=== PATIENT | female | born 1950 | race Caucasian/White ===

== ENCOUNTER → 2018-12-17 | Outpatient (CLI) | payer MEDICARE, OTHER ==
[~2018-12-17] MED LIST: ASPI-587 PO; IBP600T1 PO; LOSA50TA6 PO; MULT-1029 PO; OMEG1CAP74 PO; OMEP40CA36 PO; Oxycodone Hcl/Acetaminophen PO
--- NOTE | 2018-12-17 10:33 | Diagnostic Imaging Report ---
CLINICAL INDICATION: Patient twisted left knee/injury. EXAM: X-ray of the left knee, 4 views. COMPARISON: None. FINDINGS: There are small areas of calcification seen laterally adjacent to the distal femoral lateral epicondylar region. These are of unknown age. Clinical correlation for pain in this region would better evaluate. There is a small calcification seen posterior to the medial distal femoral epicondylar region, best seen on the lateral view. This may represent a loose body versus chronic soft tissue calcification. There is no significant knee effusion. There is no acute fracture or dislocation otherwise seen. There is a moderately hypertrophic patellar spur at the quadriceps attachment. IMPRESSION: 1. There are small calcifications seen laterally adjacent to the lateral distal femoral epicondylar region. These may be from soft tissue traumatic injury of unknown age. Clinical correlation for pain in this region would better evaluate. 2. There is a small chronic appearing calcification seen posteriorly adjacent to the medial distal femoral epicondylar region which may represent a loose body versus soft tissue calcification. 3. Otherwise, there is no acute fracture or dislocation. 4. There is chronic patellar spurring. Dictated by: Dictated on workstation # [id number]
== END ==
LOC: RAD FS 09:50
PROVIDERS: ATTEND Nurse Practitioner
DX: S89.92XA Unspecified injury of left lower leg, initial encounter (principal); M25.862 Other specified joint disorders, left knee; M76.892 Other specified enthesopathies of left lower limb, excluding foot
CPT/HCPCS: 73562

== ENCOUNTER → 2018-12-20 | Outpatient (CLI) | payer MEDICARE, OTHER ==
--- NOTE | 2018-12-20 14:16 | Diagnostic Imaging Report ---
EXAMINATION: Magnetic resonance imaging of the left knee without intravenous contrast DATE: December 20, 2018. COMPARISON: Left knee radiographs December 17, 2018. INDICATION: 68-year-old female, twisting injury. Left knee pain. TECHNIQUE: Multiplanar, multisequence non contrast enhanced MR imaging was accomplished. FINDINGS: MENISCI: The medial meniscus is intact. The lateral meniscus is intact. LIGAMENTS AND TENDONS: There is a complete tear of the anterior cruciate ligament. The posterior cruciate ligament is intact. There is edema on both sides of the superficial component of the medial collateral ligament without identified discrete tear. This is compatible with a low-grade sprain injury. The iliotibial band, mid third lateral capsular ligament, fibular collateral ligament, biceps femoris tendon and conjoined tendon are intact. The quadriceps tendon and patella ligament are intact. JOINT: There is a roughly 10 mm wide area of approximately 50% cartilage loss of the medial aspect of the lateral patellar facet. There is thinning of the cartilage of the medial patellar facet. The medial and lateral compartment cartilage is grossly intact. There is a small knee joint effusion without identified intra-articular body or prominent synovitis. BONE: There is edema-like signal in the posterior medial and lateral tibial plateaus without identified fracture lines compatible with bone contusions. There is also a bone contusion in the region of lateral femoral notch. There is no acute fracture. There are no signal changes of osteonecrosis. BURSAE AND SOFT TISSUES: There is minimal fluid in the popliteal fossa without sizable Martinez's cyst. There is mild nonspecific prepatellar subcutaneous edema. IMPRESSION: 1. Complete tear of the anterior cruciate ligament. Intact posterior cruciate ligament, low-grade sprain injury of the medial collateral ligament complex. 2. No identified tear at the medial or lateral meniscus 3. Bone contusions of the lateral femoral notch and posterior aspects of the medial and lateral tibial plateaus. No acute fracture. 4. Mild patellofemoral compartment osteoarthritis. Small knee joint effusion without intra-articular body or prominent synovitis. Dictated by: Dictated on workstation # [id number]
== END ==
LOC: RAD 12:49
PROVIDERS: ATTEND Nurse Practitioner
DX: S83.512A Sprain of anterior cruciate ligament of left knee, initial encounter (principal); S83.412A Sprain of medial collateral ligament of left knee, initial encounter; S70.12XA Contusion of left thigh, initial encounter; S80.12XA Contusion of left lower leg, initial encounter; M19.012 Primary osteoarthritis, left shoulder; X50.1XXA Overexertion from prolonged static or awkward postures, initial encounter
CPT/HCPCS: 73721

== ENCOUNTER 2019-01-03 12:22 | Outpatient (CLI) | payer MEDICARE, OTHER ==
[~2019-01-03] VITALS: Ht 152.4 cm; Wt 75.3 kg
[2019-01-03 12:37] VITALS: BP 150/78
[2019-01-03] MEDS ORDERED: CEPH500C PO (13:15)
[2019-01-03] MEDS ORDERED: OMEG-136 PO (13:15)
[2019-01-03] MEDS ORDERED: LORA10TA7 PO (13:15)
[2019-01-03] MEDS ORDERED: MV-M1TAB57 PO (13:15)
[2019-01-03] MEDS ORDERED: ASPI81TA16 PO (13:15)
[2019-01-03] MEDS ORDERED: METO-370 PO (13:15)
== END 2019-01-03 13:00 | disposition home or self-care (01) ==
LOC: PREOP 12:22
PROVIDERS: ATTEND Orthopaedic Surgery
DX: Z01.818 Encounter for other preprocedural examination (principal)
CPT/HCPCS: 87081

== ENCOUNTER 2019-01-09 07:58 | Day surgery (SDC) | payer MEDICARE, OTHER ==
--- NOTE | 2018-12-31 17:57 | HISTORY AND PHYSICAL ---
DATE OF SERVICE: ADMISSION HISTORY AND PHYSICAL This will be for outpatient surgery on 01/09/2019. Date of service, date of surgery, date of outpatient surgery will be 01/09/2019. HISTORY OF PRESENT ILLNESS: The patient is a 68-year-old female who is very active, who injured her left knee on the 11/26/2018. She was stepping onto a wall, and fell and heard a pop. Since then she has had an instability episode with her knee giving away with associated swelling and pain. She reports difficulty with pivoting activities, as she does not trust her knee. She also has difficulty with twisting activities. Her knee has limited functional activities and because of this, she has elected to proceed with surgical intervention. An MRI revealed disruption of her anterior cruciate ligament. REVIEW OF SYSTEMS: No chest pain or shortness of breath. No dysuria. PAST MEDICAL HISTORY: Significant for kidney stones, aortic aneurysm. PAST SURGICAL HISTORY: Kidney stone, cholecystectomy, tonsillectomy, hysterectomy. FAMILY HISTORY: Noncontributory. PRIMARY CARE PROVIDER: . MEDICATIONS: Metoprolol, aspirin. ALLERGIES: AMOXICILLIN. SOCIAL HISTORY: The patient denies alcohol, tobacco use. PHYSICAL EXAMINATION: GENERAL: The patient is a well-developed, well-nourished, in no acute distress. HEENT: Normocephalic, atraumatic. Pupils equal, round, react to light. Oropharynx is clear. NECK: Supple, no lymphadenopathy. LUNGS: Clear to auscultation bilaterally. HEART: Regular rate and rhythm. ABDOMEN: Soft, nontender, nondistended. EXTREMITIES: The left knee demonstrates 2+ Whit, 2+ anterior drawer, positive pivot glide. There is no varus valgus laxity. Slight effusion noted. No joint line tenderness. She has mild pain laterally with Elda. Range of motion is 0/0/130. She ambulates with an antalgic gait on the left. IMPRESSION: Left knee anterior cruciate ligament disruption with functional impairment. PLAN: Left knee arthroscopic anterior cruciate ligament reconstruction using allograft. The risks, benefits, options, ramifications and recovery were discussed at length with the patient. She understands and wishes to proceed. Job ID: [id number] DocumentID: [id number] Dictated Date: 12/31/2018 09:07:01 Plycor Operator Date: 12/31/2018 09:55:54 Dictated By: SALLIE LISA MD
[2019-01-09] VITALS (12 sets, daily range): BP systolic 124–159; BP diastolic 66–85
[~2019-01-09] VITALS: Ht 152.4 cm; Wt 75.3 kg
[~2019-01-09 07:58] MED LIST changes: +ASPI81TA16 PO; +CEPH500C PO; +LORA10TA7 PO; +METO-370 PO; +MV-M1TAB57 PO; +OMEG-136 PO
[2019-01-09] MEDS ORDERED: LACTATED RINGERS 1,000 ML IV PRN (07:59)
[2019-01-09] MEDS ORDERED: CLINDAMYCIN 600 MG/50 ML IVPB 50 ML IV ONE (08:00)
[2019-01-09] MEDS ORDERED: CATHETER FLUSH 10 ML SYR IV PRN (08:15)
[2019-01-09] MEDS ORDERED: fentaNYL INJECTION 100 MCG/2 ML AMP ONE ×2 (08:55→09:58)
[2019-01-09] MEDS ORDERED: DEXAMETHASONE 10 MG/ML (DECADRON) 1 ML VIAL ONE (08:55)
[2019-01-09] MEDS ORDERED: ONDANSETRON 4 MG/2 ML (SDV) Z0FRAN ONE (08:55)
[2019-01-09] MEDS ORDERED: proPOfol 200 MG/20 ML (DIPRIVAN) VIAL IV ONE (08:55)
[2019-01-09] MEDS ORDERED: MIDAZOLAM 2 MG/2 ML (VERSED) VIAL ONE (08:55)
[2019-01-09] MEDS ORDERED: morphine PF (DURAMORPH) 10 MG/10 ML AMP ONE (09:14)
[2019-01-09] MEDS ORDERED: BUPIVACAINE 0.25% 30 ML (SENSORCAINE) VIAL ONE (09:14)
[2019-01-09] MEDS ORDERED: BUPIVACAINE 0.5% 30 ML (SENSORCAINE) VIAL ONE (09:20)
--- NOTE | 2019-01-09 09:31 | Progress Note-Pre Operative ---
Pre-Operative Progress Note H&P Reviewed The H&P was reviewed, patient examined and no changes noted. Date Seen by Provider: January 09, 2019 Time Seen by Provider: 09:31 Date H&P Reviewed: January 09, 2019 Time H&P Reviewed: 09:31 Pre-Operative Diagnosis: left ACL tear SALLIE LISA MD January 09, 2019 09:31
--- NOTE | 2019-01-09 09:32 | Progress Note-Post Operative ---
Post-Operative Progess Note Surgeon (s)/Ham Rolling Machine Operator (s) Surgeon SALLIE LISA MD Ham Rolling Machine Operator: Gus Amato Pre-Operative Diagnosis left ACL tear Post-Operative Diagnosis left knee ACL tear and chondromalacia of the medial femoral condyle Procedure & Operative Findings Date of Procedure 01/09/19 Procedure Performed/Findings left knee arthroscopic ACL reconstruction and chondroplasty of the medial femoral condyle Anesthesia Type GETA Estimated Blood Loss Estimated blood loss (mL): minimal Specimens/Packing Specimens Removed none Packing: none SALLIE LISA MD January 09, 2019 09:32
[2019-01-09] MEDS: LACTATED RINGERS 1,000 ML IV PRN ×2 (09:40→10:00)
[2019-01-09] MEDS ORDERED: HYDROcodone/APAP 7.5 MG/325 MG (LORTAB, LORCET PLUS) TABLET PO PRN (09:45)
[2019-01-09] MEDS ORDERED: LIDOCAINE PF 2% 5 ML (XYLOCAINE) VIAL ONE (10:11)
[2019-01-09] MEDS ORDERED: SEVOFLURANE (ULTANE) 15 ML INHAL SOLN ONE ×2 (10:11→10:58)
[2019-01-09] MEDS ORDERED: morphine INJ 10 MG/ML 1ML (SYR OR VIAL) IVP ONE (11:00)
[2019-01-09] MEDS ORDERED: ONDANSETRON 4 MG/2 ML (SDV) Z0FRAN IVP PRN (11:00)
[2019-01-09] MEDS ORDERED: fentaNYL INJECTION 100 MCG/2 ML AMP IVP ONE (11:00)
--- NOTE | 2019-01-09 11:50 | NUR ---
TO AMB SURG FROM PAR PER CART. ALERT, RATES LEFT KNEE PAIN 1 WITH MOVEMENT. CMS CHECKS WITHIN NORMAL LIMITS TO LEFT LEG/FOOT. DSG D/I TO LEFT KNEE BENEATH THIGH HIGH BROOKS HOSE, BRACE AND POLAR CARE IN PLACE, LEG ELEVATED. PO FLUIDS PROVIDED. BED LOW, LOCKED, RAILS UP X2. CALL LIGHT TO PT AND AT SIDE.
--- NOTE | 2019-01-09 12:12 | Anesthesia-General Post-Op ---
General Patient Condition Mental Status/LOC: Same as Preop Cardiovascular: Satisfactory Nausea/Vomiting: Absent Respiratory: Satisfactory Pain: Controlled Complications: Absent Post Op Complications Complications None Follow Up Care/Instructions Patient Instructions None needed. Anesthesia/Patient Condition Patient Condition Patient is doing well, no complaints, stable vital signs, no apparent adverse anesthesia problems. No complications reported per nursing. BRIT WILLOUGHBY CRNA January 09, 2019 12:12
--- NOTE | 2019-01-09 13:00 | NUR ---
HAS BEEN RESTING QUIETLY, TAKING PO FLUIDS AND CRACKERS WITHOUT PROBLEM. PHYSICAL THERAPY ORDERED FOR WALKER TRAINING. LORTAB 7.5/325 MG, ONE TAB, GIVEN FOR PAIN CONTROL PER PT REQUEST. REPORTS PAIN LEVEL OF 1-2 WHEN MOVING LEFT LEG IN BED.
--- NOTE | 2019-01-09 14:17 | Physical Therapy Ortho Eval ---
PT Orthopedic Evaluation Type of Surgery Knee Scope also ACL reconstruction, has ROM brace on left leg and polar care Prior Level of Function Current Living Status: Spouse Locomotion (Upon Admit): Independent Established Durable Medical Eq: Front Wheeled Walker Subjective Subjective Patient in bed pre tx, agrees to PT, has no complaints of pain. Patient states that her left leg is pretty numb. She states that she can have a couple of people help her up the steps to her home. Entry Into Home: Stairs Without Railing Steps Into Home: 3 ROM left knee extension +5 degrees, flexin 45 degrees Transfer Transfers (B, C, W/C) (FIM): 5 Gait Gait Assistive Device: FWW Left Lower Extremity: Left Weight Bearing Status LLE: Weight Bearing/Tolerated Gait (FIM): 2 Distance: 50' Gait Level of Assist: 4 Summary/Comments Patient ambulated 50' with CGA using a rolling walker . She has poor heel strike on the left side and decreased stance time. Patient was able to bear weight through her left leg. Patient also went up and down 1 step using a rolling walker with CGA. Treatment Rendered Treatment: Therapeutic Exercises, Gait Train, Step Train Exercise Instruction: Quad Sets, Heel Slides, Ankle Pumps Assessment/Goals Goal Time Frame: 1 Visit Understands HEP: Yes Safe Ambulation: Yes Plan Treatment Plan: Discharge PT/Family Agrees to Plan: Yes Time Time In: 1340 Time Out: 1355 Total Billed Treatment Time: 15 Billed Treatment Time 1 visit GUCCI 15' BOY RAMIREZ PT January 09, 2019 14:17
--- NOTE | 2019-01-09 14:34 | OPERATIVE REPORT ---
DATE OF SERVICE: 01/09/2019 PREOPERATIVE DIAGNOSIS: Left knee ACL tear. POSTOPERATIVE DIAGNOSES: 1. Left knee ACL tear. 2. 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 PROCEDURES: 1. Left knee arthroscopic ACL reconstruction. 2. Left knee arthroscopic chondroplasty of the medial femoral condyle. SURGEON: Tonny Lisa MD. RIVETER PNEUMATIC: Gus Mahmood, who assisted throughout the procedure and closed the incisions. ANESTHESIA: General endotracheal plus femoral nerve block by Randi Winter CRNA. TOURNIQUET TIME: Not applicable. ESTIMATED BLOOD LOSS: Minimal. DRAINS: None. COMPLICATIONS: None. POSTOP PLAN: Routine ACL protocol. The patient was transferred to the recovery room awake and in stable condition. STATEMENT OF MEDICAL NECESSITY: The patient is a 68-year-old female who injured her left knee. She felt and heard a pop and since has had multiple episodes of instability. She had instability with activities of daily living and because of this, she elected to proceed with ACL reconstruction. DESCRIPTION OF PROCEDURE: After risks and benefits of the procedure were discussed and questions were answered, an informed consent was signed and placed on the chart. The operative site was confirmed in the preoperative holding area initialed by the surgeon. The patient was then transferred to the operating room and after adequate levels of regional plus general endotracheal anesthetic were obtained, a timeout was called confirming the operative site. Examination under anesthesia was performed, which revealed 2+ Whit, 2+ anterior drawer and a positive pivot shift. Range of motion was 0/0/140. The left lower extremity was prepped and draped in the usual sterile fashion. The knee joint was injected with 60 mL of fluid and standard inferior lateral portal was placed with the arthroscope under direct visualization, inferior medial portal was created. The menisci and cruciates were carefully probed which revealed no meniscal pathology. The lateral compartment demonstrated no chondral pathology. The ACL was completely disrupted from its femoral attachment. The PCL was intact. The medial compartment demonstrated no meniscal pathology. However, there was grade II chondral flap in the central weightbearing portion of the femoral condyle in a 15 x 15 area. The patella and trochlea demonstrated no gross chondral abnormalities. The unstable chondral flaps in the medial femoral condyle were debrided with shaver back to a stable edge. The ACL remnant was debrided with a shaver and the ekwf-vep-oci position was identified by opening the notch with the shaver. The tibial guide was placed at 65 degrees at the ACL footprint intraarticularly. A percutaneous incision was made one thumb breath medial to the tibial tubercle. Guidewire was passed intraarticularly and felt to be in excellent position. This was then overreamed with a 9 mm reamer. Debris was removed with a shaver. The vyie-[id number]-gcs position guide was placed at the 2 o'clock position. The guidewire was passed and out the lateral aspect of the thigh. This was then reamed with a 9 mm reamer to a depth of 25 mm and excellent back wall remained. Debris was removed with the shaver. The graft was then passed. The button was passed through the lateral cortex and flipped. The graft was then walked into the femoral tunnel and pulled vigorously distally and found to be stable. The knee was cycled through a range of motion with no impingement of the graft noted with full flexion and extension of the knee held in 30 degrees of flexion and a posterior drawer applied. A 10 x 28 mm interference screw was placed with excellent purchase obtained. This was slightly prominent tibial exit site, but when viewing intraarticularly, there was no prominence of the screw tip noted. No impingement of the graft was noted with full flexion, full flexion was noted. The patient had negative Whit, negative pivot shift, negative anterior drawer. The knee joint was copiously irrigated. The incision site was copiously irrigated. The portal sites closed with 4-0 nylon in simple interrupted fashion, 2-0 Vicryl was used to reapproximate subcutaneous tissue at the tibial tunnel site and the skin was closed with 4-0 nylon in simple interrupted fashion. The knee joint was injected with Duramorph. The portal sites incisions were infiltrated with plain Marcaine. Soft dressing and brace were applied. The patient transferred to recovery room awake and in stable condition. Job ID: [id number] DocumentID: [id number] Dictated Date: 01/09/2019 10:52:45 Field Assembly Supervisor Date: 01/09/2019 14:34:00 Dictated By: TONNY LISA MD
[2019-01-09] MEDS ORDERED: HYDR-3816 PO (14:35)
--- NOTE | 2019-01-09 15:00 | NUR ---
HAS C/O DIZZINESS AND SLIGHT NAUSEA AFTER BEING UP WITH PHYSICAL THERAPY AND ASSISTED TO [facility]SC TO VOID. HAS BEEN RESTING QUIETLY IN BED. STATES SHE FEELS BETTER NOW AND IS READY FOR DISMISSAL.
--- NOTE | 2019-01-09 15:25 | NUR ---
HAS BEEN UP AGAIN TO [facility] [place] TO [place] AND NOW C/O RECURRING NAUSEA AND DIZZINESS. ASSIST BACK TO BED. ZOFRAN 4 MG GIVEN IV PER ORDER.
[2019-01-09] MEDS ORDERED: ONDANSETRON 4 MG/2 ML (SDV) Z0FRAN IVP ONE (15:30)
--- NOTE | 2019-01-09 16:30 | NUR ---
HAS BEEN RESTING QUIETLY WITH EYES CLOSED. ALERT NOW, DENIES NAUSEA OR DIZZINESS AT THIS TIME. LEFT KNEE PAIN RATED AT 1. NO CHANGE IN SITE OR CMS ASSESSMENTS. STATES SHE IS READY FOR DISMISSAL.
[2019-01-10 13:16] VITALS: BP 148/79
== END 2019-01-09 16:30 | disposition home or self-care (01) ==
LOC: SDC 07:58
PROVIDERS: ATTEND Orthopaedic Surgery
DX: S83.512A Sprain of anterior cruciate ligament of left knee, initial encounter (principal); M94.262 Chondromalacia, left knee; X50.1XXA Overexertion from prolonged static or awkward postures, initial encounter; I10 Essential (primary) hypertension; I71.2 Thoracic aortic aneurysm, without rupture; H40.9 Unspecified glaucoma; N28.9 Disorder of kidney and ureter, unspecified; Z79.82 Long term (current) use of aspirin; Z79.899 Other long term (current) drug therapy; Z87.442 Personal history of urinary calculi; Z88.1 Allergy status to other antibiotic agents

== ENCOUNTER → 2021-08-25 | Outpatient (CLI) | payer MEDICARE, OTHER ==
[~2021-08-25] MED LIST changes: +HYDR-34 PO; -METO-370 PO; +METO50TA7 PO
--- NOTE | 2021-08-25 16:31 | Diagnostic Imaging Report ---
EXAMINATION: CT abdomen and pelvis without contrast. TECHNIQUE: Multiple contiguous axial images were obtained through the abdomen and pelvis without the use of intravenous contrast. All CT scans use one or more of the following dose optimizing techniques: automated exposure control, MA and/or KvP adjustment based on patient size and exam type or iterative reconstruction. HISTORY: Nausea, abdominal pain. COMPARISON: None available. FINDINGS: Lung bases: The lung bases are clear. Solid organs: A left hepatic cyst is present. The liver is otherwise unremarkable. The gallbladder is surgically absent. There is no biliary ductal dilation. Pancreas is normal. Spleen is normal. Adrenal glands are normal. The kidneys are normal without visualized calculus or hydronephrosis. Bowel: The stomach and small bowel are normal without obstruction. There is diffuse wall thickening and inflammatory stranding seen throughout the colon. The appendix is normal. Peritoneum: There is no intraperitoneal free fluid or free air. No suspicious lymphadenopathy. Vasculature: Calcification of the aorta without aneurysm. Musculoskeletal: Degenerative changes of the spine without suspicious osseous lesion or compression fracture. Pelvis: The uterus is surgically absent. No adnexal mass. The urinary bladder is normal. IMPRESSION: Diffuse wall thickening and inflammatory stranding throughout the colon, compatible with an infectious or inflammatory pancolitis. Dictated by: Dictated on workstation # [id number]
== END ==
LOC: RAD FS 15:56
PROVIDERS: ATTEND Family Medicine
DX: R11.0 Nausea (principal); R10.9 Unspecified abdominal pain; K63.89 Other specified diseases of intestine
CPT/HCPCS: 74176

== ENCOUNTER → 2021-08-25 | Outpatient (CLI) | payer MEDICARE, OTHER ==
[2021-08-25 14:16] LABS: BILIRUBIN,TOTAL 0.2 MG/DL (0.1-1.0); CALCIUM 8.7 MG/DL (8.5-10.1); CREATININE SERUM 0.76 MG/DL (0.60-1.30); POTASSIUM 3.6 MMOL/L (3.6-5.0)
[2021-08-25 14:17] LABS: ALBUMIN 3.9 GM/DL (3.2-4.5); HEMATOCRIT 44 % (35-52); HEMOGLOBIN 14.8 g/dL (11.5-16.0); MEAN CORPUSCULAR HEMOGLOBIN 30 pg (25-34); TOTAL PROTEIN 7.2 GM/DL (6.4-8.2); WHITE BLOOD COUNT 9.4 10^3/uL (4.3-11.0)
[2021-08-25 14:18] LABS: BASOPHILS % (AUTO) 0 % (0-10); EOSINOPHILS # (AUTO) 0.1 10^3/uL (0.0-0.3); EOSINOPHILS % (AUTO) 1 % (0-10); LYMPHOCYTES # (AUTO) 1.3 X 10^3 (1.0-4.0); LYMPHOCYTES % (AUTO) 14 % (12-44); MEAN CORPUSCULAR HGB CONC 34 g/dL (32-36); MEAN CORPUSCULAR VOLUME 90 fL (80-99); MEAN PLATELET VOLUME 9.8 fL (9.0-12.2); MONOCYTES % (AUTO) 10 % (0-12); NEUTROPHILS % (AUTO) 75 % (42-75); PLATELET COUNT 278 10^3/uL (130-400)
== END ==
LOC: LAB FS 12:54
PROVIDERS: ATTEND Family Medicine
DX: R11.0 Nausea (principal); R10.9 Unspecified abdominal pain
CPT/HCPCS: 36415; 80053; 82150; 83690; 85025

== ENCOUNTER → 2021-08-30 | Outpatient (CLI) | payer MEDICARE, OTHER ==
[2021-08-30 11:31] LABS: CLARITY,URINE SL CLOUDY; GLUCOSE, URINE (UA) NEGATIVE (NEGATIVE); KETONES,URINE 2+ (NEGATIVE); LEUKOCYTE ESTERASE ,URINE NEGATIVE (NEGATIVE); NITRITE,URINE NEGATIVE (NEGATIVE); PROTEIN,URINE TRACE (NEGATIVE)
[2021-08-30 12:10] LABS: COLOR,URINE DARK YELLOW
[2021-08-30 12:11] LABS: BACTERIA,URINE TRACE /HPF; BILIRUBIN,URINE 2+ (NEGATIVE)
[2021-08-30 12:13] LABS: HEMOGLOBIN 14.3 g/dL (11.5-16.0); MEAN CORPUSCULAR HEMOGLOBIN 31 pg (25-34); WHITE BLOOD COUNT 8.4 10^3/uL (4.3-11.0)
[2021-08-30 12:14] LABS: BASOPHILS # (AUTO) 0.1 10^3/uL (0.0-0.1); BASOPHILS % (AUTO) 1 % (0-10); EOSINOPHILS # (AUTO) 0.1 10^3/uL (0.0-0.3); EOSINOPHILS % (AUTO) 1 % (0-10); HEMATOCRIT 41 % (35-52); LYMPHOCYTES # (AUTO) 2.3 X 10^3 (1.0-4.0); LYMPHOCYTES % (AUTO) 27 % (12-44); MEAN CORPUSCULAR HGB CONC 35 g/dL (32-36); MEAN CORPUSCULAR VOLUME 87 fL (80-99); MEAN PLATELET VOLUME 9.9 fL (9.0-12.2); MONOCYTES # (AUTO) 0.7 X 10^3 (0.0-1.0); MONOCYTES % (AUTO) 9 % (0-12); NEUTROPHILS # (AUTO) 5.2 X 10^3 (1.8-7.8); NEUTROPHILS % (AUTO) 61 % (42-75); PLATELET COUNT 326 10^3/uL (130-400)
[2021-08-30 12:15] LABS: BILIRUBIN,TOTAL 0.4 MG/DL (0.1-1.0); CALCIUM 8.7 MG/DL (8.5-10.1); CREATININE SERUM 0.78 MG/DL (0.60-1.30); POTASSIUM 3.4 MMOL/L (3.6-5.0)
[2021-08-30 12:16] LABS: ALBUMIN 3.6 GM/DL (3.2-4.5); TOTAL PROTEIN 6.4 GM/DL (6.4-8.2)
== END ==
LOC: LAB FS 11:09
PROVIDERS: ATTEND Family Medicine
DX: K52.9 Noninfective gastroenteritis and colitis, unspecified (principal)
CPT/HCPCS: 36415; 80053; 81000; 85025